=== PATIENT | female | born 1995 | race Caucasian/White ===

== ENCOUNTER 2020-08-06 19:09 | Emergency (ER) | payer SELFPAY ==
[~2020-08-06] VITALS: Ht 177.8 cm; Wt 95.4 kg
[2020-08-06] MEDS ORDERED: FOLIC ACID 40400 MCG PO (19:19)
[2020-08-06 20:52] VITALS: BP 124/81
== END 2020-08-06 20:53 | disposition home or self-care (01) ==
LOC: ED 19:09
DX: O46.92 Antepartum hemorrhage, unspecified, second trimester (principal); Z3A.15 15 weeks gestation of pregnancy

== ENCOUNTER → 2022-06-01 | Outpatient (CLI) | payer SELFPAY ==
[~2022-06-01] MED LIST: FOLIC ACID 40400 MCG PO
== END ==
LOC: LAB 12:37
DX: U07.1 COVID-19 (principal)